=== PATIENT | male | born 1930 | race Caucasian/White ===

== ENCOUNTER 2016-09-22 20:01 | Inpatient (IN) | payer OTHER ==
[~2016-09-22] VITALS: Ht 177.8 cm; Wt 52.2 kg
[~2016-09-22 20:01] MED LIST: BISA5TAB13 PO; DOCU-25 PO; Isosorbide Dinitrate PO; TAMS-3 PO
--- NOTE | 2016-09-22 20:10 | NUR ---
b/b ra c/o syncopal episodes today.pt pale and cachectic, cool extremities,awake and talks in [place].daughter in and interprets.
[2016-09-22] MEDS ORDERED: IV NORMAL SALINE 500 ML BAG IV ONE ×2 (20:15→21:00)
[2016-09-22 21:15] LABS: EOSINOPHILS % (AUTO) 0.6 % (0.0-7.0); LYMPHOCYTES # (AUTO) 0.3 K/uL (20.0-40.0); LYMPHOCYTES % (AUTO) 4.8 % (20.5-51.5); MEAN CORPUSCULAR HEMOGLOBIN 32.4 UUG (27.0-31.0); MEAN CORPUSCULAR HGB CONC 36 g/dL (32.0-37.0); MEAN CORPUSCULAR VOLUME 90.7 FL (82.0-92.0); MONOCYTES # (AUTO) 0.4 K/uL (2.0-10.0); MONOCYTES % (AUTO) 5.9 % (0.0-11.0); NEUTROPHILS # (AUTO) 6.3 K/uL (1.8-8.9); NEUTROPHILS % (AUTO) 88.7 % (38.5-71.5); PLATELET COUNT (AUTO) 226 K/UL (150-450)
[2016-09-22 21:18] LABS: HEMATOCRIT 13.2 % (40-50); HEMOGLOBIN 4.7 G/DL (14.0-18.0); RED BLOOD CELL COUNT(AUTO) 1.46 MIL/UL (4.7-6.1)
[2016-09-22 21:41] LABS: BILIRUBIN,DIRECT 0.1 mg/dL (0.0-0.2); BILIRUBIN,TOTAL 0.2 mg/dL (0.2-1.0); POTASSIUM 5.1 mmol/L (3.5-5.1); TOTAL PROTEIN, SERUM 4.7 g/dL (6.4-8.2)
[2016-09-22 21:42] LABS: CREATININE 4.8 mg/dL (0.6-1.3)
[2016-09-22 22:14] LABS: BAND % (MANUAL) 3 % (0-10); LYMPHOCYTES % (MANUAL) 3 % (20-40); MONOCYTES % (MANUAL) 4 % (2-10); NEUTROPHILS % (MANUAL) 90 % (42-75)
--- NOTE | 2016-09-22 22:40 | NUR ---
PER ERMD CONTACTED [facility], PEDIATRIC SPEECH THERAPIST TO PAGE PANEL ...
--- NOTE | 2016-09-22 23:01 | NUR ---
Pt. admitted to CCU 3 , under care of Dr. Babin, Belongs List completed, pt alert, oriented x 2, family at bedside, no resp distress noted or reported upon transfer assessment...
[2016-09-22] MEDS ORDERED: ONDANSETRON 4 MG/2 ML VIAL IV PRN (23:15)
[2016-09-22] MEDS ORDERED: ISOSORBIDE DINITRATE 10 MG TABLET PO SCH (23:15)
[2016-09-22] MEDS ORDERED: ALBUTEROL SULFATE 2.5 MG/ 0.5 ML NEBU NEB PRN (23:15)
[2016-09-22] MEDS ORDERED: IV NS 1000 ML 1,000 ML IV PRN (23:15)
[2016-09-22] MEDS ORDERED: PHENYLEPHRINE IV 20 MG in IV DEXTROSE 5% 250 ML IV PRN (23:15)
[2016-09-22] MEDS ORDERED: ACETAMINOPHEN 325 MG TABLET PO PRN (23:15)
[2016-09-22] MEDS ORDERED: VANCOMYCIN IV 500 MG in IV DEXTROSE 5% 100 ML IV ONE (23:15)
[2016-09-22] MEDS ORDERED: PANTOPRAZOLE SODIUM IV 40 MG in IV DEXTROSE 5% 100 ML IV SCH (23:15)
[2016-09-22] MEDS ORDERED: BISACODYL 5 MG TABLET.DR PO PRN (23:15)
[2016-09-22 23:30] VITALS: BP 82/34
[2016-09-22] MEDS ORDERED: PHENYLEPHRINE 10 MG/1 ML VIAL ONE (23:54)
[2016-09-23] VITALS (40 sets, daily range): BP systolic 63–135; BP diastolic 34–99
--- NOTE | 2016-09-23 | NUR ---
Neosynephrine pulled out of PO[facility] [employer] at 2354. Administered as ordered. See eMAR
[2016-09-23] MEDS: IV D5/ 0.9% NACL 1,000 ML IV PRN ×2 (00:30→15:06)
[2016-09-23] MEDS ORDERED: PHENYLEPHRINE IV 80 MG in IV DEXTROSE 5% 250 ML IV PRN (00:30)
[2016-09-23 00:33] LABS: IRON, SERUM 48 ug/dL (50-175)
--- NOTE | 2016-09-23 01:13 | NUR ---
Transfused 1st unit of PRBCs, tolerated well
[2016-09-23] MEDS: PIPERACILLIN/TAZOBACTAM/D5W 2.25 G in PREMIXED 1 EACH IV SCH ×4 (02:00→17:34)
[2016-09-23] MEDS ORDERED: VANCOMYCIN HCL 500 MG VIAL ONE (02:08)
[2016-09-23] MEDS ORDERED: PIPERACILLIN/TAZO 2.25 GM VIAL ONE (02:09)
--- NOTE | 2016-09-23 03:00 | NUR ---
2nd unit pRBCs transfused 0230, tolerated well. Lasix given post-2nd transfusion as ordered, see eMAR
[2016-09-23] MEDS: MORPHINE SULFATE 2 MG/1 ML DISP.SYRIN IV PRN ×2 (03:57→09:08)
[2016-09-23] MEDS ORDERED: FUROSEMIDE 20 MG/2 ML VIAL IV ONE (04:00)
[2016-09-23] MEDS ORDERED: MORPHINE SULFATE 2 MG/1 ML DISP.SYRIN ONE (04:06)
[2016-09-23 04:17] LABS: *BILIRUBIN,URIN NEGATIVE (NEGATIVE); *BLOOD, URINE 3+ (NEGATIVE); *CLARITY,URINE TURBID (CLEAR); *KETONES,URINE NEGATIVE (NEGATIVE); *UROBILINOGEN,URINE 0.2 E.U./dl (NORMAL); NITRITE, URINE NEGATIVE (NEGATIVE); UGLUCOSE NEGATIVE (NEGATIVE)
[2016-09-23 04:19] LABS: *COLOR,URINE BLOODY (YELLOW); *PROTEIN,URINE 3+ (NEGATIVE); LEUKOCYTE ESTERASE ,URINE TRACE (NEGATIVE)
[2016-09-23 04:21] LABS: BACTERIA,URINE NONE SEEN /HPF (NONE SEEN); RBC,URINE TNTC /HPF (0-3); SQUAMOUS EPITHELIAL CELL,UR FEW /HPF (NONE SEEN)
--- NOTE | 2016-09-23 04:27 | NUR ---
Morphine pulled from [employer]. Administered as ordered, see eMAR
--- NOTE | 2016-09-23 04:30 | NUR ---
3rd unit pRBCs transfused, tolerated well
[2016-09-23] MEDS ORDERED: Z GUARD REMEDY PASTE 57 GM TUBE TOP PRN (04:45)
[2016-09-23 05:54] LABS: BASOPHILS # (AUTO) 0.1 K/uL (0.0-8.0); BASOPHILS % (AUTO) 1.1 % (0.0-2.0); EOSINOPHILS # (AUTO) 0.1 K/uL (0.0-0.7); EOSINOPHILS % (AUTO) 0.8 % (0.0-7.0); HEMATOCRIT 28.7 % (40-50); HEMOGLOBIN 9.1 G/DL (14.0-18.0); LYMPHOCYTES # (AUTO) 0.4 K/uL (20.0-40.0); LYMPHOCYTES % (AUTO) 3.7 % (20.5-51.5); MEAN CORPUSCULAR HEMOGLOBIN 28.9 UUG (27.0-31.0); MEAN CORPUSCULAR HGB CONC 32 g/dL (32.0-37.0); MEAN CORPUSCULAR VOLUME 90.5 FL (82.0-92.0); MONOCYTES # (AUTO) 0.5 K/uL (2.0-10.0); MONOCYTES % (AUTO) 5.4 % (0.0-11.0); NEUTROPHILS # (AUTO) 8.6 K/uL (1.8-8.9); PLATELET COUNT (AUTO) 168 K/UL (150-450); RED BLOOD CELL COUNT(AUTO) 3.17 MIL/UL (4.7-6.1); WHITE BLOOD COUNT (AUTO) 9.7 K/UL (4.0-11.2)
--- NOTE | 2016-09-23 06:06 | NUR ---
ZOSYN 0600 not given Order for frequency of q8hr, last dose given at 0400. Will endorse to day shift nurse/pharmacy
[2016-09-23 06:29] LABS: BILIRUBIN,TOTAL 0.8 mg/dL (0.2-1.0); MAGNESIUM 2.7 mg/dL (1.8-2.4); PHOSPHOROUS 6.4 mg/dL (2.5-4.9); POTASSIUM 5.6 mmol/L (3.5-5.1); TOTAL PROTEIN, SERUM 5.1 g/dL (6.4-8.2)
[2016-09-23 06:30] LABS: CREATININE 5.3 mg/dL (0.6-1.3)
[2016-09-23] MEDS ORDERED: IV NORMAL SALINE 500 ML IV ONE (07:00)
[2016-09-23] MEDS ORDERED: PANTOPRAZOLE SODIUM 40 MG VIAL IV SCH (07:00)
--- NOTE | 2016-09-23 07:09 | NUR ---
Spoke with Dr. Santos for critical labs including lactic acid of 8.9 and preliminary troponin of 216 Orders received and entered, however held until he spoke with Dr. Ja Peres called and cancelled previous orders. Endorsed to Mila Naylor RN
[2016-09-23] MEDS ORDERED: ALBUTEROL SULFATE 2.5 MG/3 ML NEBU NEB PRN (07:15)
--- NOTE | 2016-09-23 07:35 | NUR ---
Troponin of 155.[address] Schrader
[2016-09-23] MEDS: ASPIRIN 300 MG RECTAL SUPP RC SCH ×3 (08:01→08:08)
[2016-09-23] MEDS: PANTOPRAZOLE SODIUM 40 MG VIAL IV SCH ×2 (08:07→20:19)
--- NOTE | 2016-09-23 08:10 | NUR ---
blood thinner scheduled for this time non-administered. Patient with active bleeding through nava catheter. aware.
[2016-09-23] MEDS ORDERED: ISOSORBIDE DINITRATE 10 MG TABLET PO SCH (08:25)
--- NOTE | 2016-09-23 09:48 | NUR ---
Clinical Pharmacy Note: Vancomycin Dosing per Pharmacy Subjective: Vancomycin IV to start on this 86 yo male patient for suspected infection (waiting for MD note). Patient received vancomycin 500mg IVPB x1 on 09/23 at 0200 Objective: BUN 49/Scr 5.3 (ARF) WBC 9.7 Temperature 97.9 wt 110 lb ht 5' 10'' Assessment/Plan: Due to elevated srcr, will dose by fall off levels. Plant to draw vancomycin random level at 1900 today. Pharmacy shall review the level & dose further if needed. Will follow daily. Addendum: 09/23/16 at 2019 by OLIVE SANCHEZ VANCOMYCIN RANDOM 6.6 TONIGHT AT 1900. VANCOMYCIN 1GRAM X1 TODAY. WILL CONTINUE TO DOSE BY RANDOM LEVEL(NOT ORDERED YET).
--- NOTE | 2016-09-23 09:53 | NUR ---
Dr. Rubi in the unit to see patient; report given. see orders.
[2016-09-23] MEDS ORDERED: SODIUM POLYSTYRENE SULFONATE 15 G/60 ML LIQUID UDC PO ONE (10:00)
[2016-09-23 10:36] LABS: *BILIRUBIN,URIN NEGATIVE (NEGATIVE); *BLOOD, URINE 3+ (NEGATIVE); *KETONES,URINE NEGATIVE (NEGATIVE); *UROBILINOGEN,URINE 0.2 E.U./dl (NORMAL); NITRITE, URINE NEGATIVE (NEGATIVE); PH,URINE 6.5 (5.0-8.0); UGLUCOSE NEGATIVE (NEGATIVE)
[2016-09-23 10:41] LABS: *CREATININE,URINE 36.7 mg/dL (30-125); *PROTEIN,URINE 3+ (NEGATIVE); LEUKOCYTE ESTERASE ,URINE TRACE (NEGATIVE)
[2016-09-23 10:42] LABS: *CLARITY,URINE TURBID (CLEAR); *COLOR,URINE BLOODY (YELLOW)
[2016-09-23 10:44] LABS: BACTERIA,URINE MODERATE /HPF (NONE SEEN); RBC,URINE TNTC /HPF (0-3); SQUAMOUS EPITHELIAL CELL,UR FEW /HPF (NONE SEEN)
[2016-09-23 11:36] LABS: *URINE TOTAL PROTEIN RANDOM > 1000.0 mg/dL (<150/24HR)
--- NOTE | 2016-09-23 17:08 | NUR ---
Dr. Schrader in the unit to see patient, report given and aware of pt's active bleeding through nava catheter. As stated by . awaiting for family meeting.
--- NOTE | 2016-09-23 18:08 | NUR ---
pt's son in law Mr. Nathalia Hendrickson and pt's daughter Mrs. simon in the unit to see patient and requested to talk to Dr. Schrader. called awaiting call back.
--- NOTE | 2016-09-23 19:10 | NUR ---
Report received from AUBREY Hoffman
[2016-09-23] MEDS ORDERED: VANCOMYCIN IV 1 G in PREMIXED 0 EACH IV ONE (20:00)
--- NOTE | 2016-09-23 20:00 | NUR ---
Seen patient on serna's position. Alert and awake to self, speaks Nauruan, family at the bedside.[place] remained red, lips are reddened w/ dried crust/scab. Oral care performed, moisturizer applied, turned and repositioned,elevated legs w/ pillow, cleaned buttocks, no BM noted, applied z-guard, sacral mildly red. Denies any pain.
[2016-09-23] MEDS: DOCUSATE SODIUM 100 MG CAPSULE PO SCH (20:19)
[2016-09-23] MEDS: TAMSULOSIN HCL 0.4 MG CAP.SR.24H PO SCH (20:19)
--- NOTE | 2016-09-23 22:00 | NUR ---
Around 2100 given pm meds including Vancomycin IVPB at 1999.Tolerated well w/ no adverse reactions noted. Pt refused to take po meds (colace and flomax).
[2016-09-24] VITALS (20 sets, daily range): BP systolic 85–131; BP diastolic 42–92
--- NOTE | 2016-09-24 | NUR ---
Pt observed resting/sleeping comfortably, breathing and satting WNL 20 bpm and 111/83. HR100 SR with PVC's.
[2016-09-24] MEDS: PIPERACILLIN/TAZOBACTAM/D5W 2.25 G in PREMIXED 1 EACH IV SCH ×3 (01:59→17:30)
--- NOTE | 2016-09-24 02:00 | NUR ---
Resting comfortably, VS WNL.
--- NOTE | 2016-09-24 04:00 | NUR ---
Bedbath rendered, made pt comfortable.Remained to have hematuria i=on his nava catheter, denies any pain, VS has been stable.
[2016-09-24] MEDS: IV D5/ 0.9% NACL 1,000 ML IV PRN ×2 (05:08→21:01)
[2016-09-24 05:15] LABS: BASOPHILS % (AUTO) 0.3 % (0.0-2.0); EOSINOPHILS # (AUTO) 0.1 K/uL (0.0-0.7); EOSINOPHILS % (AUTO) 1.3 % (0.0-7.0); HEMATOCRIT 28.1 % (40-50); HEMOGLOBIN 9.6 G/DL (14.0-18.0); LYMPHOCYTES # (AUTO) 0.3 K/UL (0.8-4.8); LYMPHOCYTES % (AUTO) 3.1 % (20.5-51.5); MEAN CORPUSCULAR HEMOGLOBIN 30.1 UUG (27.0-31.0); MEAN CORPUSCULAR HGB CONC 34 g/dL (32.0-37.0); MEAN CORPUSCULAR VOLUME 87.9 FL (82.0-92.0); MONOCYTES # (AUTO) 0.6 K/UL (0.1-1.30); MONOCYTES % (AUTO) 5.6 % (0.0-11.0); NEUTROPHILS # (AUTO) 10.1 K/UL (1.8-8.9); NEUTROPHILS % (AUTO) 89.7 % (38.5-71.5); PLATELET COUNT (AUTO) 151 K/UL (150-450); RED BLOOD CELL COUNT(AUTO) 3.19 MIL/UL (4.7-6.1); WHITE BLOOD COUNT (AUTO) 11.1 K/UL (4.0-11.2)
[2016-09-24 05:38] LABS: BILIRUBIN,TOTAL 0.4 mg/dL (0.2-1.0); MAGNESIUM 2.2 mg/dL (1.8-2.4); PHOSPHOROUS 5.5 mg/dL (2.5-4.9); POTASSIUM 3.5 mmol/L (3.5-5.1)
[2016-09-24 05:44] LABS: CREATININE 4.9 mg/dL (0.6-1.3)
--- NOTE | 2016-09-24 06:00 | NUR ---
Urinary output total 300ml hematuria.
[2016-09-24] MEDS: PANTOPRAZOLE SODIUM 40 MG VIAL IV SCH ×2 (08:26→21:22)
--- NOTE | 2016-09-24 11:11 | NUR ---
Clinical Pharmacy Note: Vancomycin Dosing per Pharmacy Subjective: Vancomycin IV to continue on this 86 yo male patient for R/o asp pna, sepsis. Objective: BUN 51/Scr 4.9 (ARF) WBC 11.1 Temperature 98.2 wt 110 lb ht 5' 10'' Assessment/Plan: Due to elevated srcr, will dose by fall off levels. Patient received vancomycin 1gm IVPB x1 dose on 09/23 at 1999. Plant to draw vancomycin random level at 1900 today. Pharmacy shall review the level & dose further if needed. Will follow daily. Addendum: 09/24/16 at 1937 by LAUREN ABARCA ADM VANCO LEVEL CAME BACK @ 15.3 WILL DOSE ANOTHER VANCOMYCIN 1 GM AND CK LEVEL AGAIN
--- NOTE | 2016-09-24 14:20 | NUR ---
Dr. Peres in the unit to see patient; full report given orders to down grade patient to telemetry received.
--- NOTE | 2016-09-24 15:07 | NUR ---
WOUND CARE CONSULT: PT PRESENTS WITH SOME SKIN GROWTHS TO LEFT FACE AND CHEST. PT HAS 4+ PITTING EDEMA TO BILATERAL FEET AND ANKLES WITH DUSKY COLOR TO FEET. ALL SKIN PROTECTION MEASURES IN PLACE. DISCUSSED WITH NURSING STAFF. IN AGREEMENT WITH PLAN OF CARE. LIBIA SCORE IS 10. PT ON FIRST STEP MATTRESS. Addendum: 09/24/16 at 1510 by DILLON SEGURA RN Amended: Links added.
--- NOTE | 2016-09-24 16:13 | NUR ---
PT'S son in law and daughter at bedside, as requested Dr. Schrader called on their behalf. Awaiting call back.
--- NOTE | 2016-09-24 17:27 | NUR ---
Telephone report given to paula Moran. Patient resting comfortable. family aware and agree to transfer.
--- NOTE | 2016-09-24 17:45 | NUR ---
At this time patient taken up to room 211 accompanied by Nursing Physical Therapist Clinic Director and rn Dean. On telemetry monitoring, no visible distress. tolerated well to be transfer to bed. IVPB zosyn running rn aware advised to complete infusion.Both IV lines patent. Patient left on 3 liters via nasal canula.
--- NOTE | 2016-09-24 18:11 | NUR ---
Nursing Notes: Telemetry: Patient transfer from CCU to [facility], room # 211, on 3L/min. via NC with humidifier, A/Ox3, following staff directions, on air mattress, F/C patent , draining well, V/S: 118/88, 106, 98.0, 18, 0/10, 90%, noticed hematomas on both arms, IV site on right FA, G-20, running D5NS @ 75ml/HR, continue with treatment plan.
[2016-09-24] MEDS ORDERED: VANCOMYCIN IV 1 G in PREMIXED 0 EACH IV ONE (19:45)
--- NOTE | 2016-09-24 20:00 | NUR ---
RECEIVED PATIENT AWAKE IN BED WITH FAMILY AT BEDSIDE. PATIENT IS A/O X3. [place] SPEAKING BUT ABLE TO MAKE NEEDS KNOWN. VSS. ON 3L NC SATING 93-94%. NO RESP. DISTRESS NOTED. IVF INFUSING WELL TO RIGHT FA #20 GAUGE. F/C INTACT DRAINING, RED, BLOODY URINE. PATIENT DENIES PAIN OR DISCOMFORT. PATIENT NOTED ON AIR MATTRESS. BED ALARM ON. CALL LIGHT IN REACH. ALL NEEDS ATTENDED.WILL CONTINUE TO MONITOR.
[2016-09-24] MEDS ORDERED: LACTOBACILLUS RHAMNOSUS GG 1 EACH CAPSULE PO SCH (21:00)
[2016-09-24] MEDS: DOCUSATE SODIUM 100 MG CAPSULE PO SCH (21:26)
[2016-09-24] MEDS: TAMSULOSIN HCL 0.4 MG CAP.SR.24H PO SCH (21:26)
--- NOTE | 2016-09-24 23:20 | NUR ---
IV PUMP BEEPING. PATIENT AWAKE IN BED. UPON LEAVING PATIENTS ROOM, PATIENT ASKED, "PLEASE CLOSE CURTAIN." CLOSED PATIENTS LIGHT, BED ALARM ON, CLOSED CURTAIN PER PATIENTS REQUEST. WILL CONTINUE TO MONITOR.
--- NOTE | 2016-09-24 23:23 | NUR ---
MT REPORTED PATIENT WENT INTO V-FIB. WENT INTO ROOM TO CHECK ON PATIENT AND MONITOR VS. VITAL SIGNS SLOWLY DROPPING. PATIENT EYES CLOSED IN BED. PATIENT IS PALE, SHALLOW BREATHING NOTED. EXTREMITIES COOL TO TOUCH. PATIENT IS SLOW TO RESPOND WHEN SPOKEN TO. KEPT COMFORTABLE. MOTORBOAT MECHANIC INBOARD MADE AWARE OF PATIENTS CHANGE OF CONDITION.
--- NOTE | 2016-09-24 23:24 | NUR ---
PRISON ASSESSMENT DONE,PT EVALUATED IN REGARDS TO HIS DECLINING VITAL SIGNS,COMFORT MEASURES PROVIDED, HANDLED GENTLY AND REPOSITIONED ACCORDINGLY,VITAL SIGNS TAKEN AND RECORDED.APNEIC FOR 5 MINUTES,UNABLE TO LOCATE PALPABLE PULSES FOR 1 FULL MINUTE, NO CORNEAL REFLEXES NOTED,NO CHEST EXPANSION OBSERVED.UNABLE TO OBTAIN BLOOD PRESSURE. PT. PRONOUNCED AT 2330. , NURSING SOLAR PANEL TECHNICIAN(COLLINS VENTURA) NOTIFIED.FAMILY MEMBER,KEVIN MENON WAS CALLED AND MADE AWARE OF PT'S EXPIRATION.
--- NOTE | 2016-09-24 23:30 | NUR ---
PT IS DNR/DNI., APPROPRIATE PAPERWORKS COMPLETED ,POST MORTEM CARE RENDERED.PT BELONGINGS PUT IN A BAG AND LABELED PROPERLY, FAMILY WILL OIL TANKER CAPTAIN IN AM,MORTUARY ARRANGEMENT TO BE TAKEN CARED OF BY FAMILY. AT 0020 , BODY WAS BROUGHT TO THE [place].
[2016-09-25 10:08] LABS: A/G RATIO 1.2 (0.7-1.7); ALBUMIN 2.6 g/dL (2.9-4.4); ALPHA-1-GLOBULIN 0.2 g/dL (0.0-0.4); ALPHA-2-GLOBULIN 0.7 g/dL (0.4-1.0); BETA GLOBULIN 0.5 g/dL (0.7-1.3); GAMMA GLOBULIN 0.5 g/dL (0.4-1.8); GLOBULIN, TOTAL 2.1 g/dL (2.2-3.9); M-SPIKE Not Observed g/dL (Not Observed)
[2016-09-25 22:10] LABS: *ANTI-SCLERODERMA-70 AB <0.2 AI (0.0-0.9); *SJOGREN'S ANTI-SS-A <0.2 AI (0.0-0.9); *SJOGREN'S ANTI-SS-B <0.2 AI (0.0-0.9); *SMITH ANTIBODIES <0.2 AI (0.0-0.9); ANTI-DNA(DS) AB, QN <1 IU/mL (0-9)
[2016-09-26 07:09] LABS: *PEU ALBUMIN, UR 49.6 % (.); *PEU ALPHA-2-GLOBULIN, UR 11.7 % (.); *PEU GAMMA GLOBULIN, UR 6.1 % (.); *PEU PROTEIN, TOTAL, UR 598.3 mg/dL (Not Estab.); *PEUALPHA-1-GLOBULIN, UR 6.4 % (.); *PEUBETA GLOBULIN, UR 26.2 % (.)
[2016-09-27 08:06] LABS: ALBUMIN 2.4 g/dL (2.9-4.4); ALPHA-1-GLOBULIN 0.3 g/dL (0.0-0.4); ALPHA-2-GLOBULIN 0.8 g/dL (0.4-1.0); BETA GLOBULIN 0.6 g/dL (0.7-1.3); GAMMA GLOBULIN 0.6 g/dL (0.4-1.8); GLOBULIN, TOTAL 2.3 g/dL (2.2-3.9); M-SPIKE Not Observed g/dL (Not Observed)
== END 2016-09-25 00:20 | disposition expired | DRG 720 ==
LOC: ER 20:01 → CCU 23:12 → TELE 09-24 17:50
PROVIDERS: ADMIT Internal Medicine; ATTEND Internal Medicine
PROC: 30233N1 Transfusion of Nonautologous Red Blood Cells into Peripheral Vein, Percutaneous Approach (ICD-10-PCS; principal; 2016-09-23)
DX: A41.9 Sepsis, unspecified organism (principal); I21.4 Non-ST elevation (NSTEMI) myocardial infarction; J96.01 Acute respiratory failure with hypoxia; N17.0 Acute kidney failure with tubular necrosis; K72.00 Acute and subacute hepatic failure without coma; R65.21 Severe sepsis with septic shock; J69.0 Pneumonitis due to inhalation of food and vomit; G93.40 Encephalopathy, unspecified; D68.59 Other primary thrombophilia; E87.2 Acidosis; E87.5 Hyperkalemia; E43 Unspecified severe protein-calorie malnutrition; I50.43 Acute on chronic combined systolic (congestive) and diastolic (congestive) heart failure; N17.9 Acute kidney failure, unspecified; C67.9 Malignant neoplasm of bladder, unspecified; D50.0 Iron deficiency anemia secondary to blood loss (chronic); N18.9 Chronic kidney disease, unspecified; I25.2 Old myocardial infarction; E78.5 Hyperlipidemia, unspecified; I13.0 Hypertensive heart and chronic kidney disease with heart failure and stage 1 through stage 4 chronic kidney disease, or unspecified chronic kidney disease; I25.10 Atherosclerotic heart disease of native coronary artery without angina pectoris; F41.9 Anxiety disorder, unspecified; K59.09 Other constipation; Z95.1 Presence of aortocoronary bypass graft; Z90.79 Acquired absence of other genital organ(s); R31.9 Hematuria, unspecified; R74.0 Nonspecific elevation of levels of transaminase and lactic acid dehydrogenase [LDH]; I25.5 Ischemic cardiomyopathy; D62 Acute posthemorrhagic anemia; J94.1 Fibrothorax; Z68.1 Body mass index [BMI] 19.9 or less, adult; I51.3 Intracardiac thrombosis, not elsewhere classified
CPT/HCPCS: 36415; 70030-TC; 70450; 71010; 72125; 76770; 83520; 83550; 83605; 83735; 83970; 84100; 84155; 84156; 84165; 84166; 84300; 85025; 85730; 86038; 86256; 86850; 86900; 86901; 86920; 87040; 87086; 93005; 93307; A4663; C9113; J1940; J2270; J2370; J2543; J3370; J7040; J7042; J7050; J7060; J7070; P9016-BL; P9021